=== PATIENT | male | born 1935 | race Caucasian/White ===

== ENCOUNTER → 2016-11-28 | Outpatient (CLI) | payer OTHER ==
[2016-11-28 13:51] LABS: CREATININE 1.1 mg/dL (0.7-1.3)
== END ==
LOC: CAT 12:54
PROVIDERS: Internal Medicine
DX: I71.2 Thoracic aortic aneurysm, without rupture (principal); I31.3 Pericardial effusion (noninflammatory); R07.9 Chest pain, unspecified

== ENCOUNTER → 2017-12-19 | Outpatient (CLI) | payer OTHER ==
[2017-12-19 08:37] LABS: CREATININE 1.1 mg/dL (0.7-1.3)
== END ==
LOC: CAT 06:16
PROVIDERS: Internal Medicine
DX: Z01.811 Encounter for preprocedural respiratory examination (principal); I71.2 Thoracic aortic aneurysm, without rupture